=== PATIENT | male | born 1940 | race Caucasian/White ===

== ENCOUNTER → 2025-06-13 | Outpatient (REF) | payer SELFPAY ==
[2025-06-13 16:51] LABS: BUN 27 mg/dL (4-19); Glucose 82 mg/dL (70-99)
[2025-06-13 16:52] LABS: Calcium,Total 8.2 mg/dL (7.6-11.0); Chloride 106 mmol/L (98-108); Potassium 4.3 mmol/L (3.3-5.1)
[2025-06-13 16:53] LABS: Carbon Dioxide 26.8 mmol/L (21.0-32.0)
[2025-06-13 16:54] LABS: Anion Gap 8 (5-15); BUN/Creat Ratio 33.2 RATIO (10-20)
[2025-06-13 16:56] LABS: Hematocrit 39.5 % (40-54); Hemoglobin 12.5 g/dL (13.0-16.5); Red Blood Count 3.94 M/mm3 (4.6-6.2); White Blood Count 4.8 K/mm3 (4.4-11.0)
[2025-06-13 17:00] LABS: Mean Corpuscular Volume 100.3 fL (80-94)
[2025-06-13 17:01] LABS: Mean Corp Hgb Conc 31.6 g/dL (32-36); Mean Platelet Vol. 10.4 fl (6.2-12.0); Platelet Count 179 K/mm3 (150-450); RBC Distribution Width CV 14.6 % (11.6-14.6); RBC Distribution Width SD 54.4 fl (35.1-43.9)
== END ==
LOC: OLS.SANC 15:23
PROVIDERS: Visit Provider Internal Medicine
DX: E87.6 Hypokalemia (principal); D64.9 Anemia, unspecified
CPT/HCPCS: 36415; 80048; 85027

== ENCOUNTER → 2025-07-12 | Outpatient (REF) | payer MEDICARE, SELFPAY ==
[2025-07-12 07:32] LABS: Mucous, Urine 0 SEEN /hpf (<or=2+); Red Blood Cells-Urine 0 SEEN /hpf (0-5); Squamous Epithelial Cells - UA 0 SEEN /hpf (0-5)
--- OUTSIDE RECORDS SUMMARY | 2025-07-12 07:35 | XMS RPT_ITS | CCD ---
Author Organization [facility] [employer] [facility] Care Team Providers Care Distribution Center Administrator Name Role Phone Graeme Davis Attending Unavailable Results Test Name Value Interpretation Reference Range Facil ity Basic Metabolic Profile (BMP )on 06-13-2025 BUN/CRE 33.2 RATIO High 10-20 [facility] [place] Comment on above: Performed By: #### L 100.0500, L500.2500 #### [facility] [place] [facility] [address] [place], [address] GAP 8 Normal 5-15 [facility] [place] Comment on above: Performed By: #### L 100.0500, L500.2500 #### [facility] [place] [facility] [address] [place], [address] CO2 [Moles/Vol] 26.8 mmol/L Normal 21.0-32.0 [facility] [place] Comment on above: Performed By: #### L 100.0500, L500.2500 #### [facility] [place] [address] [place], [address] Calcium [Mass/Vol] 8.2 mg/dL Normal 7.6-11.0 [facility] Comment on above: Performed By: #### L 100.0500, L500.2500 #### [facility] [place] [facility] [address] [place], [address] Chloride [Moles/Vol] 106 mmol/L Normal 98-108 [facility] Comment on above: Performed By: #### L 100.0500, L500.2500 #### [facility] [place] [address] [place], [address] Potassium [Moles/Vol] 4.3 mmol/L Normal 3.3-5.1 [facility] [place] Comment on above: Performed By: #### L 100.0500, L500.2500 #### [facility] [place] [address] [place], [address] Sodium [Moles/Vol] 140 mmol/L Normal 133-145 [facility] Comment on above: Performed By: #### L 100.0500, L500.2500 #### [facility] [place] [facility] [address] [place], [address] Creatinine [Mass/Vol] 0.80 mg/dL Normal 0.70-1.20 [facility] [place] Comment on above: Performed By: #### L 100.0500, L500.2500 #### [facility] [address] [place], [address] GFR/1.73 sq M.predicted among non-blacks MDRD (S/P/Bld) [Vol rate/Area] 107 mL/min/{1.73_m2} Normal >60 [facility] [place] Comment on above: Performed By: #### L 100.0500, L500.2500 #### [facility] [place] [address] [place], [address] Glucose [Mass/Vol] 82 mg/dL Normal 70-99 [facility] Comment on above: Performed By: #### L 100.0500, L500.2500 #### [facility] [place] [address] [place], [address] Urea nitrogen [Mass/Vol] 27 mg/dL High 4-19 [facility] [place] Comment on above: Performed By: #### L 100.0500, L500.2500 #### [facility] [place] [address] [place], [address] CBC-Complete Blood Cnt No Di ffon 06-13-2025 Erythrocyte distribution width (RBC) [Ratio] 14.6 % Normal 11.6-14.6 [facility] [place] Comment on above: Performed By: #### L 100.0500, L500.2500 #### [facility] [address] [place], [address] MCH (RBC) [Entitic mass] 31.7 pg Normal 27.0-32.0 [facility] [place] Comment on above: Performed By: #### L 100.0500, L500.2500 #### [facility] [place] [facility] [address] [place], [address] MCHC (RBC) [Mass/Vol] 31.6 g/dL Low 32-36 [facility] [place] Comment on above: Performed By: #### L 100.0500, L500.2500 #### [facility] [place] [facility] [address] [place], [address] Platelet mean volume (Bld) [Entitic vol] 10.4 fL Normal 6.2-12.0 [facility] [place] Comment on above: Performed By: #### L 100.0500, L500.2500 #### [facility] [place] [facility] [address] [place], [address] Platelets (Bld) [#/Vol] 179 10*3/uL Normal 150-450 [facility] [place] Comment on above: Performed By: #### L 100.0500, L500.2500 #### [facility] [place] [facility] [address] [place], [address] RDW SD 54.4 fl High 35.1-43.9 [facility] [place] Comment on above: Performed By: #### L 100.0500, L500.2500 #### [facility] [address] [place], [address] MCV (RBC) [Entitic vol] 100.3 fL High 80-94 [facility] [place] Comment on above: Performed By: #### L 100.0500, L500.2500 #### [facility] [address] [place], [address] Hematocrit (Bld) [Volume fraction] 39.5 % Low 40-54 [facility] [place] Comment on above: Performed By: #### L 100.0500, L500.2500 #### [facility] [place] [facility] [address] [place], [address] Hemoglobin (Bld) [Mass/Vol] 12.5 g/dL Low 13.0-16.5 [facility] [place] Comment on above: Performed By: #### L 100.0500, L500.2500 #### [facility] [address] [place], [address] RBC (Bld) [#/Vol] 3.94 10*6/uL Low 4.6-6.2 [facility] Comment on above: Performed By: #### L 100.0500, L500.2500 #### [facility] [address] [place], [address] WBC (Bld) [#/Vol] 4.8 10*3/uL Normal 4.4-11.0 [facility] Comment on above: Performed By: #### L 100.0500, L500.2500 #### [facility] [address] [place], [address] Encounters Encounter Date Encounter Type Care Provider Facility Start: 06-13-2025 ambulatory Graeme HANDLEY Faci lity:[facility] [place] Payers Date Payer Category Payer Self-pay Unknown [id number] Summary Purpose Family History No Family History Records Found Advance Directives No Advanced Directives Records Found Additional Source Comments (unrecognized sect ion and content) No Status Records Found INFORMATION SOURCE (unrecogn ized section and content) DATE CREATED AUTHOR 06/14/2025 [facility] FOR RECORDS PERTAINING TO PATIENTS WHO ARE OR HAVE BEEN ENROLLED IN A CHEMICAL DEPENDENCY/SUBSTANCEABUSE PROGRAM, SOME INFORMATION MAY BE OMITTED. This clinical summary was aggregated from multiple sources. Caution should be exercised in using it in the provision of clinical care. This summary normalizes information from multiple sources, and as a consequence, information in this document may materially change the coding, format and clinical context of patient data. In addition, data may be omitted in some cases. CLINICAL DECISIONS SHOULD BE BASED ON THE PRIMARY CLINICAL RECORDS. [facility] provides no warranty or guarantee of the accuracy or completeness of information in this document.
[2025-07-12 08:26] LABS: Color, Urine Yellow (Yellow); Glucose, Dipstick Normal (Normal); Ketone-Dipstick Negative (Negative); Leukocyte Esterase-Dipstick Negative /ul (Negative); Nitrite-Dipstick Negative (Negative); Occult Blood-Urine Negative /ul (Negative); Protein-Dipstick 15 mg/dl (Negative); Specific Gravity, Urine 1.020 (1.002-1.030); Urine Bilirubin Dipstick Negative (Negative)
[2025-07-12 08:36] LABS: Calcium Oxalate Crystals Ur 1+ /hpf (<or=2+)
== END ==
LOC: OLS.SANC 04:00
PROVIDERS: Visit Provider Internal Medicine
DX: R41.82 Altered mental status, unspecified (principal)
CPT/HCPCS: 81001; 87077; 87086; 87088; 87186